=== PATIENT | male | born 1965 | race Caucasian/White ===

== ENCOUNTER 2019-06-10 18:10 | Emergency (ER) | payer MEDICAID, OTHER ==
[2019-06-10] MEDS: CEPHALEXIN 500 MG CAP PO (21:57)
[2019-06-10] MEDS: HYDROCODONE/APAP (10/325) TAB PO (23:26)
== END 2019-06-10 23:40 | disposition short-term general hospital (02) ==
LOC: FTE 18:10
DX: S61.211A Laceration without foreign body of left index finger without damage to nail, initial encounter (principal); E11.9 Type 2 diabetes mellitus without complications; W26.8XXA Contact with other sharp object(s), not elsewhere classified, initial encounter; Y92.89 Other specified places as the place of occurrence of the external cause
CPT/HCPCS: 12002; 73140; 99285-25

== ENCOUNTER 2019-06-16 20:28 | Emergency (ER) | payer MEDICAID | END 2019-06-16 21:45 | disposition home or self-care (01) | LOC: FTE 20:28 | DX: L25.9 Unspecified contact dermatitis, unspecified cause (principal) | CPT/HCPCS: 99283; Z7502 ==